=== PATIENT | male | born 1935 | race Caucasian/White ===

== ENCOUNTER 2017-08-07 16:12 | Observation (INO) ==
[2017-08-07] MEDS ORDERED: Ipratropium/Albuterol Neb 3 ML IH ONE (16:24)
[2017-08-07] MEDS ORDERED: methylPREDNISolone 125 MG/2 ML VIAL IVP ONE (16:24)
--- NOTE | 2017-08-07 16:33 | Emergency Department Note ---
Disposition Clinical Impression: Acute exacerbation of chronic obstructive airways disease Pneumonia Qualifiers: Pneumonia type: due to unspecified organism Laterality: unspecified laterality Lung location: unspecified part of lung Qualified Code(s): J18.9 - Pneumonia, unspecified organism Disposition: Admitted As Inpatient Condition: Fair Referrals: Nikunj Singleton MD [Primary Care Provider] - Forms: ED Satisfaction Letter Time of Disposition: 17:42 SOB HPI - General Chief Complaint: ED Shortness of Breath/Dyspnea Stated Complaint: COPD Time Seen by Provider: 08/07/17 16:24 Source: patient Mode of arrival: wheelchair Limitations: no limitations Nursing Notes Reviewed: Yes Vital Signs Reviewed: Yes - History of Present Illness ED-year-old with history of end-stage COPD who was at pulmonology and sent here for further evaluation with increasing shortness of breath. Their recommendation was admission for maximization of medical treatment. Pt Subjective Complaint: shortness of breath Onset (ago): month(s) Context: other (Recently worsening.) Severity: severe Consistency/Duration: constant Improves with: oxygen Worsens with: exertion Known history of: COPD Associated symptoms: Reports: wheezing. Denies: fever, cough Treatment prior to arrival: bronchodilator Cough present: Yes Cough Description: Involuntary Cough Frequency: Intermittent - Related Data Home Medications Medication Instructions Recorded Confirmed Albuterol Sulfate [Ventolin Hfa] 2 puff IH Q4HR PRN 12/21/15 08/07/17 Ipratropium/Albuterol Neb [Duoneb] 3 ml IH Q6HR 12/21/15 08/07/17 Polyethylene Glycol 3350 [MiraLAX] 17 gm PO DAILY 12/21/15 08/07/17 Budesonide/Formoterol 160/4.5 2 puff IH BIDR 08/07/17 08/07/17 [Symbicort 160/4.5] HYDROcodone/Acet 5/325 mg [[place] 1 tab PO Q4H PRN 08/07/17 08/07/17 5-325 mg] Roflumilast [Daliresp] 500 mcg PO DAILY 08/07/17 08/07/17 Umeclidinium [place] [Incruse 62.5 mcg IH DAILY 08/07/17 08/07/17 Ellipta] Allergies Allergy/AdvReac Type Severity Reaction Status Date / Time No Known Allergies Allergy Unverified 08/07/17 16:16 All systems ED: reviewed and negative except as stated. Constitutional: Denies: fever, chills, weakness, weight change Eyes: Denies: eye pain, eye discharge, vision change ENT ED: Denies: ear pain, throat pain, dental pain, hearing loss, epistaxis, congestion, dysphagia Cardiovascular: Denies: chest pain, palpitations, dyspnea on exertion, edema, syncope Respiratory: Reports: dyspnea, wheezes. Denies: cough, hemoptysis, stridor Gastrointestinal: Denies: abdominal pain, nausea, vomiting, diarrhea, constipation, hematemesis, melena, hematochezia Genitourinary: Denies: urgency, dysuria, frequency, hematuria Musculoskeletal: Denies: back pain, neck pain, arthralgia, myalgia Integumentary: Denies: rash, abrasion, lesions Neurological: Denies: headache, weakness, numbness, paresthesias, confusion, abnormal gait, vertigo Psychiatric: Denies: anxiety, depression, suicidal thoughts, homicidal thoughts , auditory hallucinations, visual hallucinations Endocrine: Denies: fatigue Hematological/Lymphatic: Denies: easy bleeding, easy bruising Allergic/Immunologic: Denies: facial swelling, urticaria Past Medical History - Past Medical History Medical history: Reports: cancer, COPD, GI bleed, hepatitis, migraine, other Psychiatric history: Reports: no psych history - Social History Smoking Status: Former smoker Smokeless Tobacco Status: No Alcohol use: Reports: none Drug use: Reports: none Physical Exam - General Limitations: no limitations General appearance: alert - Head Head exam: atraumatic, normocephalic, normal inspection - Eye Eye exam: Present: normal appearance, PERRL, EOMI - ENT ENT exam: normal exam, normal oropharynx, mucous membranes moist - Neck Neck exam: Present: normal inspection, full ROM, trachea midline - Chest Chest inspection: Present: normal inspection, symmetric chest wall rise - Respiratory Respiratory exam: Present: wheezes, accessory muscle use, prolonged expiratory phase - Cardiovascular Cardiovascular exam: Present: regular rate, normal rhythm, normal heart sounds - Abdominal Exam Abdominal exam: Present: soft, Non-Tender. Absent: tenderness, distention, guarding, rebound, rigidity - Extremities Exam Extremities exam: Present: pedal edema - Expanded Lower Extremity Exam Neurovascular/Tendon exam: Absent: motor deficit, sensory deficit, tendon deficit Gait: not tested/not observed - Back Exam Back exam: Present: normal inspection, full ROM. Absent: tenderness - Neurological Exam Neurological exam: Present: alert, oriented X3 - Psychiatric Psychiatric exam: Present: normal affect, normal mood - Skin Skin exam: Present: warm, dry, intact, normal color Course - Reevaluation(s) Reevaluation #1: 82-year-old seen by pulmonary today sent here for admission. Patient does have evidence of pneumonia. Time: 19:24 - Consultations Consultation #1: Discussed with , admit. Time: 19:24 Vital Signs Temperature 98.2 F 08/07/17 16:16 Pulse Rate 102 08/07/17 16:16 Respiratory Rate 26 08/07/17 16:16 Blood Pressure 110/64 08/07/17 16:16 O2 Sat by Pulse Oximetry 94 08/07/17 16:16 Temperature 98.2 F 08/07/17 16:16 Pulse Rate 90 08/07/17 16:41 Respiratory Rate 18 08/07/17 16:41 Blood Pressure 124/62 08/07/17 16:41 O2 Sat by Pulse Oximetry 98 08/07/17 16:41 Oxygen Delivery Oxygen Delivery Nasal Cannula Shortness of Breath/Dyspnea - Lab Data Lab results reviewed: Yes I reviewed the patient's lab results. Result diagrams: 08/07/17 16:40 08/07/17 16:40 Lab Results 08/07/17 08/07/17 08/07/17 Range/Units 16:40 16:40 16:40 WBC 10.1 (4.3-11.1) K/mcL RBC 4.31 (4.19-5.50) M/mcL Hgb 14.4 (12.9-16.9) g/dL Hct 43.8 (37.5-50.1) % MCV 101.6 H (83.0-100.0) fL MCH 33.4 H (28.0-33.3) pg MCHC 32.9 (31.6-35.5) g/dL RDW 12.4 (11.5-14.5) % Plt Count 523 H (140-400) K/mcL MPV 9.2 L (9.4-12.4) fL Immature Gran % 0.9 (0-4) % Seg Neutrophils % 82.7 % Lymphocytes % 8.1 % Monocytes % 7.1 % Eosinophils % 0.8 % Basophils % 0.4 % Neutrophils # 8.3 (1.6-8.9) K/mcL Lymphocytes # 0.8 (0.6-4.6) K/mcL Monocytes # 0.7 (0.0-1.3) K/mcL Eosinophils # 0.1 (0.0-0.6) K/mcL Basophils # 0.0 (0.0-0.2) K/mcL Sample Site ABG pH (7.32-7.45) pH Units ABG pCO2 (35-45) mmHg ABG pO2 (85-104) mmHg ABG HCO3 (21-27) mEq/L ABG Total CO2 (20-26) mEq/L ABG O2 Saturation (95-98) % ABG Base Excess (-2 to 3) mEq/L Pete Test O2 Delivery Device Inspired O2 (1-15=lpm [id number]=%) Sodium 143 (136-145) mEq/L Potassium 3.8 (3.5-5.1) mEq/L Chloride 104 (98-107) mEq/L Carbon Dioxide 29 (23-29) mEq/L BUN 9 (8-23) mg/dL Creatinine 0.88 (0.70-1.30) mg/dL Est GFR ( Amer) > 60 (> 60) Est GFR (Non-Af Amer) > 60 (> 60) BUN/Creatinine Ratio 10 (6-26) Glucose 113 H (70-105) mg/dL Calculated Osmolality 295 (280-300) Lactic Acid (0.5-2.2) mmol/L Calcium 10.2 (8.6-10.3) mg/dL Troponin I < 0.03 (< 0.04) ng/mL B-Natriuretic Peptide 11 (Less than 100) pg/mL 08/07/17 08/07/17 Range/Units 17:07 17:37 WBC (4.3-11.1) K/mcL RBC (4.19-5.50) M/mcL Hgb (12.9-16.9) g/dL Hct (37.5-50.1) % MCV (83.0-100.0) fL MCH (28.0-33.3) pg MCHC (31.6-35.5) g/dL RDW (11.5-14.5) % Plt Count (140-400) K/mcL MPV (9.4-12.4) fL Immature Gran % (0-4) % Seg Neutrophils % % Lymphocytes % % Monocytes % % Eosinophils % % Basophils % % Neutrophils # (1.6-8.9) K/mcL Lymphocytes # (0.6-4.6) K/mcL Monocytes # (0.0-1.3) K/mcL Eosinophils # (0.0-0.6) K/mcL Basophils # (0.0-0.2) K/mcL Sample Site R Radial ABG pH 7.37 (7.32-7.45) pH Units ABG pCO2 54 H (35-45) mmHg ABG pO2 57 L (85-104) mmHg ABG HCO3 31 H (21-27) mEq/L ABG Total CO2 33 H (20-26) mEq/L ABG O2 Saturation 88 L (95-98) % ABG Base Excess 4 H (-2 to 3) mEq/L Pete Test N/A O2 Delivery Device Cannula Inspired O2 2.0 (1-15=lpm pt70-075=%) Sodium (136-145) mEq/L Potassium (3.5-5.1) mEq/L Chloride (98-107) mEq/L Carbon Dioxide (23-29) mEq/L BUN (8-23) mg/dL Creatinine (0.70-1.30) mg/dL Est GFR ( Amer) (> 60) Est GFR (Non-Af Amer) (> 60) BUN/Creatinine Ratio (6-26) Glucose (70-105) mg/dL Calculated Osmolality (280-300) Lactic Acid 1.3 (0.5-2.2) mmol/L Calcium (8.6-10.3) mg/dL Troponin I (< 0.04) ng/mL B-Natriuretic Peptide (Less than 100) pg/mL - Radiology Data Radiology results reviewed: Yes I reviewed the patient's radiology results. Chest X-Ray 08/07/17 16:24 IMPRESSION: Left upper lobe pneumonia with underlying findings of apical predominant emphysema. Developing mass cannot be entirely excluded. Follow-up to complete clearing is recommended. D/ / Timmy Velasquez MD / Timmy Velasquez MD Interpreting Provider: Timmy Velasquez MD - EKG Data EKG attestation: Yes I reviewed and interpreted this EKG. EKG shows normal: Reports: sinus rhythm Rate: Reports: tachycardia Rhythm: Reports: NSR [place]/QRS: Reports: RBBB T wave inversions noted in: Reports: v1, v2, v3, v4 When compared to previous EKG there are: changes noted (New T-wave inversion in leads V1 and V2 V3 and V4) Interpretation: Reports: other (T-wave inversion and anterior septal leads)
[2017-08-07 17:13] LABS: ABG Base Excess 4 mEq/L (-2 to 3); ABG HCO3 31 mEq/L (21-27); ABG Oxygen Saturation 88 % (95-98); ABG PCO2 54 mmHg (35-45); ABG PH 7.37 pH Units (7.32-7.45); ABG PO2 57 mmHg (85-104); ABG TCO2 33 mEq/L (20-26)
[2017-08-07 17:14] LABS: Basophils % 0.4 %; Eosinophils # 0.1 K/mcL (0.0-0.6); Eosinophils % 0.8 %; Hematocrit 43.8 % (37.5-50.1); Hemoglobin 14.4 g/dL (12.9-16.9); Immature Granulocytes % 0.9 % (0-4); Lymphocytes # 0.8 K/mcL (0.6-4.6); Lymphocytes % 8.1 %; Mean Corpuscular HGB Conc 32.9 g/dL (31.6-35.5); Mean Corpuscular Hemoglobin 33.4 pg (28.0-33.3); Mean Corpuscular Volume 101.6 fL (83.0-100.0); Mean Platelet Volume 9.2 fL (9.4-12.4); Monocytes # 0.7 K/mcL (0.0-1.3); Monocytes % 7.1 %; Neutrophils # 8.3 K/mcL (1.6-8.9); Platelet Count 523 K/mcL (140-400); Red Blood Count 4.31 M/mcL (4.19-5.50); Red Cell Distribution Width 12.4 % (11.5-14.5); Segmented Neutrophils % 82.7 %
[2017-08-07 17:33] LABS: BUN/Creatinine Ratio 10 (6-26); Blood Urea Nitrogen 9 mg/dL (8-23); Calcium 10.2 mg/dL (8.6-10.3); Carbon Dioxide 29 mEq/L (23-29); Chloride 104 mEq/L (98-107); Glucose 113 mg/dL (70-105); Osmolality,Calculated 295 (280-300); Potassium 3.8 mEq/L (3.5-5.1); Sodium 143 mEq/L (136-145); Troponin I < 0.03 ng/mL (< 0.04); eGFR For African Americans > 60 (> 60); eGFR For Non-African Americans > 60 (> 60)
[2017-08-07] MEDS ORDERED: Piperacillin/Tazobactam 3.375 GM in 0.9 % Sodium Chloride Mini Bag 100 ML IVPB ONE (17:55)
[2017-08-07] MEDS ORDERED: Ipratropium/Albuterol Neb 3 ML IH PRN (19:23)
[2017-08-07] MEDS ORDERED: Naloxone 0.4 MG/ML INJ IVP PRN (19:25)
--- NOTE | 2017-08-07 19:30 | Internal Med History&Physical ---
Date of Encounter: 08/07/17 Time of Encounter: 19:27 Internal Medicine - H&P: HPI Chief complaint: SOB History of present illness: Mr. Robins is a 82 year old male with a long history COPD 2/2 smoking, quit in 2012 who presents with acute on subacute worsening of breath or symptoms. Found to be in COPD exacerbation along with left upper lobe pneumonia. He had visited pulmonology office in the clinic and was seen by Dr. Marie today where he complained of steady worsening of shortness of breath in the last 2 months. In the last few days symptoms has progressed to the extent that he was unable to ambulate around his house without feeling dyspneic. At baseline he uses nocturnal oxygen and when necessary daytime oxygen 2-3 L. However in the past week at least he had needed 2 to 3 L oxygen all day. He denies any chest pain. He is however productive of green sputum associated with cough. EKG personally reviewed with rate 102, sinus tachycardia, right bundle branch block that appear new compared to 2013. He however denies chest pain. Troponin was unremarkable in the setting of protracted symptoms measured in days and weeks XR/XR chest 1V portable IMPRESSION: Left upper lobe pneumonia with underlying findings of apical predominant emphysema. Developing mass cannot be entirely excluded. Follow-up to complete clearing is recommended. Past Med Surg Social Fam HX - Past Medical History Medical history: cancer, COPD, GI bleed, hepatitis, migraine, other Psychiatric history: no psych history - Social History Smoking Status: Former smoker Smokeless Tobacco Status: No Alcohol use: none Drug use: none - Family History Father Adopted: No Family Member Ethnicity: Non- Living Status: Internal Medicine - H&P: Meds Albuterol Sulfate [Ventolin Hfa] 2 puff IH Q4HR PRN 12/21/15 [History] Ipratropium/Albuterol Neb [Duoneb] 3 ml IH Q6HR 12/21/15 [History] Polyethylene Glycol 3350 [MiraLAX] 17 gm PO DAILY 12/21/15 [History] Budesonide/Formoterol 160/4.5 [Symbicort 160/4.5] 2 puff IH BIDR 08/07/17 [ History] HYDROcodone/Acet 5/325 mg [[place] 5-325 mg] 1 tab PO Q4H PRN 08/07/17 [History] Roflumilast [Daliresp] 500 mcg PO DAILY 08/07/17 [History] Umeclidinium [place] [Incruse Ellipta] 62.5 mcg IH DAILY 08/07/17 [History] 3 Allergy/AdvReac Type Severity Reaction Status Date / Time No Known Allergies Allergy Unverified 08/07/17 16:16 All Systems PM: A 10-system review of systems was performed and is negative for pertinent findings except as documented above in the HPI. Review of systems: ROS 14 point review of systems reviewed as best as possible given presentation. Pertinent positive or negative as per HPI or otherwise reviewed as negative - Constitutional Vitals: Temp Pulse Resp BP Pulse Ox 98.2 F 90 18 124/62 98 08/07/17 16:16 08/07/17 16:41 08/07/17 16:41 08/07/17 16:41 08/07/17 16:41 Exam: General - AAO x 3 Psych - Appropriate affect/speech. No agitation Eyes - [place]. Eye lids intact. No scleral icterus Neuro - No gross peripheral or central neuro deficits on inspection Heart - Sinus tachycardia. RRR. S1 and S2 present. No added HS/murmurs appreciated. No elevated JVD appreciated. Lung - decreased air entry b/l, scant left upper lobe crackles, scant wheezes appreciated GI - Soft, non-tender. No hepatosplenomegaly/ascites. BS+ - No CVA/suprapubic tenderness or palpable bladder distension Skin - Intact. No rash/petechiae/ecchymosis. Warm extremities Internal Med - H&P Results - Labs CBC & Chem 7: 08/07/17 16:40 08/07/17 16:40 Labs: Short CBC 08/07/17 Range/Units 16:40 WBC 10.1 (4.3-11.1) K/mcL Hgb 14.4 (12.9-16.9) g/dL Hct 43.8 (37.5-50.1) % Plt Count 523 H (140-400) K/mcL Neutrophils # 8.3 (1.6-8.9) K/mcL BMP 08/07/17 16:40 Sodium 143 Potassium 3.8 Chloride 104 Carbon Dioxide 29 BUN 9 Creatinine 0.88 Glucose 113 H Calcium 10.2 Cardiac Enzymes 08/07/17 Range/Units 16:40 Troponin I < 0.03 (< 0.04) ng/mL - ABG Interpretation ABG results: 08/07/17 17:07 ABG pH 7.37 ABG pCO2 54 H ABG pO2 57 L ABG HCO3 31 H ABG Total CO2 33 H ABG O2 Saturation 88 L ABG Base Excess 4 H - Impressions ITS Impressions Chest X-Ray 08/07/17 16:24 IMPRESSION: Left upper lobe pneumonia with underlying findings of apical predominant emphysema. Developing mass cannot be entirely excluded. Follow-up to complete clearing is recommended. D/ / Timmy Velasquez MD / Timmy Velasquez MD Interpreting Provider: Timmy Velasquez MD - Assessment and plan (1) Acute exacerbation of chronic obstructive airways disease Current Visit: Yes Status: Acute Assessment and plan: IV steroids, DuoNeb, antibiotics to treat pneumonia (2) Pneumonia Current Visit: Yes Status: Acute Assessment and plan: Empiric community acquired pneumonia coverage with Rocephin, azithromycin IV Serologies, RVP pulse oximetry Check CT chest without contrast to rule out postobstructive pneumonia Review last CT in 2014 Qualifiers: Pneumonia type: due to unspecified organism Laterality: unspecified laterality Lung location: unspecified part of lung Qualified Code(s): J18.9 - Pneumonia, unspecified organism (3) Acute and chronic respiratory failure ([id number]) Current Visit: Yes Status: Acute Assessment and plan: treat above Qualifiers: Respiratory failure complication: hypoxia Qualified Code(s): J96.21 - Acute and chronic respiratory failure with hypoxia - Time Spent With Patient Total time spent is greater than 50% in coordination of care (as documented) at patient's floor/unit and/or counseling patient:
[2017-08-07] MEDS: *HR* HYDROcodone/Acet 5/325 mg TABLET PO PRN (22:09)
[2017-08-07] MEDS: Azithromycin 500 MG in D5% in Water 250 ML IVPB SCH (22:15)
[2017-08-07] MEDS: Budesonide/Formoterol 160/4.5 MDI IH SCH (22:57)
[2017-08-07] MEDS: Ipratropium/Albuterol Neb 3 ML IH SCH (22:58)
[2017-08-07] MEDS: MethylPREDNISolone 40 MG/ML VIAL IVP SCH (23:24)
[2017-08-08] MEDS: Ipratropium/Albuterol Neb 3 ML IH SCH ×4 (04:03→23:35)
[2017-08-08] MEDS: MethylPREDNISolone 40 MG/ML VIAL IVP SCH ×3 (05:13→20:50)
[2017-08-08] MEDS: *HR* Enoxaparin 30 MG/0.3 ML SYRINGE SQ SCH (05:14)
[2017-08-08 05:39] LABS: Basophils % 0.1 %; Hematocrit 38.2 % (37.5-50.1); Immature Granulocytes % 0.9 % (0-4); Lymphocytes # 0.3 K/mcL (0.6-4.6); Lymphocytes % 4.2 %; Mean Corpuscular Hemoglobin 32.6 pg (28.0-33.3); Mean Platelet Volume 9.2 fL (9.4-12.4); Monocytes % 0.4 %; Neutrophils # 7.3 K/mcL (1.6-8.9); Platelet Count 488 K/mcL (140-400); Red Blood Count 3.86 M/mcL (4.19-5.50); Red Cell Distribution Width 12.6 % (11.5-14.5); Segmented Neutrophils % 94.4 %
[2017-08-08 05:41] LABS: Hemoglobin 12.6 g/dL (12.9-16.9)
[2017-08-08 05:58] LABS: BUN/Creatinine Ratio 15 (6-26); Blood Urea Nitrogen 13 mg/dL (8-23); Calcium 9.9 mg/dL (8.6-10.3); Carbon Dioxide 25 mEq/L (23-29); Chloride 104 mEq/L (98-107); Glucose 171 mg/dL (70-105); Osmolality,Calculated 294 (280-300); Potassium 4.3 mEq/L (3.5-5.1); Sodium 140 mEq/L (136-145); eGFR For African Americans > 60 (> 60); eGFR For Non-African Americans > 60 (> 60)
[2017-08-08] MEDS: *HR* HYDROcodone/Acet 5/325 mg TABLET PO PRN ×3 (08:11→21:45)
[2017-08-08] MEDS: (Roflumilast [Daliresp] 500 MCG) PO SCH (08:41)
[2017-08-08] MEDS: cefTRIAXone 2,000 MG in Water for inj. (sterile) 20 ML 20 ML IVPB SCH (08:41)
[2017-08-08] MEDS: (Umeclidinium Bromide [Incruse Ellipta] 62.5 MCG) IH SCH (08:41)
[2017-08-08] MEDS: Budesonide/Formoterol 160/4.5 MDI IH SCH ×2 (10:50→23:35)
[2017-08-08 12:23] LABS: Adenovirus Not Detected (Not Detect); Bordetella Pertussis Not Detected (Not Detect); Chlamydophila pneumoniae Not Detected (Not Detect); Coronavirus 229E Not Detected (Not Detect); Coronavirus HKU1 Not Detected (Not Detect); Coronavirus NL63 Not Detected (Not Detect); Coronavirus OC43 Not Detected (Not Detect); Human Metapneumovirus Not Detected (Not Detect); Human Rhinovirus/Enterovirus Not Detected (Not Detect); Influenza A Subtype 2009 H1 Not Detected (Not Detect); Influenza A Untypeable Not Detected (Not Detect); Influenza B Not Detected (Not Detect); Mycoplasma pneumoniae Not Detected (Not Detect); Parainfluenza Virus 1 Not Detected (Not Detect); Parainfluenza Virus 2 Not Detected (Not Detect); Parainfluenza Virus 3 Not Detected (Not Detect); Parainfluenza Virus 4 Not Detected (Not Detect); Respiratory Syncytial Virus Not Detected (Not Detect)
--- NOTE | 2017-08-08 12:27 | Electrocardiograph Report ---
[place] [id number] Test Date: 2017-08-07 Pat Name: Khang Robins Department: 104 Room: 3A47 Gender: M Government Clerk: LUPILLO : 1935 Requested By: Benedict Malin Order Number: [id number] Reading MD: Jagjit Mora Measurements Intervals [place] Rate: 102 P: 79 [place]: 148 QRS: 57 QRSD: 135 T: 42 QT: 356 QTc: 415 Interpretive Statements SINUS TACHYCARDIA RIGHT BUNDLE BRANCH BLOCK Electronically Signed On 08-08-2017 12:25:33 EDT by Jagjit Mora
--- NOTE | 2017-08-08 15:39 | Internal Med Progress Note ---
Date of Encounter: 08/08/17 Time of Encounter: 15:36 - Assessment and plan (1) Acute exacerbation of chronic obstructive airways disease Current Visit: Yes Status: Acute Assessment and plan: Acute on chronic hypoxic hypercapnic respiratory failure secondary to acute COPD exacerbation due to community-acquired pneumonia, unknown agent Rocephin started, azithromycin day #2 Received 1 dose of Zosyn at the ER on 08/07/2017 Continue Solu-Medrol, DuoNeb CT scan of the chest showed a left upper lobe opacity possible infection, needs follow-up as an outpatient with a CT in 6 weeks as neoplasm remains a possibility. (2) Pneumonia Current Visit: Yes Status: Acute Assessment and plan: Rocephin, azithromycin IV Qualifiers: Pneumonia type: due to unspecified organism Laterality: unspecified laterality Lung location: unspecified part of lung Qualified Code(s): J18.9 - Pneumonia, unspecified organism (3) Acute and chronic respiratory failure ([id number]) Current Visit: Yes Status: Acute Assessment and plan: treat above Qualifiers: Respiratory failure complication: hypoxia Qualified Code(s): J96.21 - Acute and chronic respiratory failure with hypoxia (4) History of GI bleed Current Visit: Yes Status: Acute Assessment and plan: Omeprazole (5) Thrombocytosis Current Visit: Yes Status: Acute Assessment and plan: Possibly related to infection - Time Spent With Patient Total time spent is greater than 50% in coordination of care (as documented) at patient's floor/unit and/or counseling patient: - Subjective Interval history: Feeling less short of breath, denies any chest pain, no abdominal pain or dysuria. No fevers. Bringing up grayish phlegm at times - Constitutional Vitals: Temp Pulse Resp BP Pulse Ox 98.0 F 103 17 107/61 96 08/08/17 15:00 08/08/17 15:00 08/08/17 15:00 08/08/17 15:00 08/08/17 15:00 General appearance: Present: A&O X 3 - Head Head exam: Present: atraumatic, normocephalic - Eye Eye exam: Present: PERRL, conjuntiva pink, sclera anicteric Pupils: Present: PERRL - Neck Neck exam general surgery: Present: supple, trachea midline. Absent: lymphadenopathy - Respiratory Respiratory exam: Present: decreased breath sounds (Very diminished breath sounds, minimal wheezing), CTAB. Absent: accessory muscle use, rales, rhonchi, wheezes - Cardiovascular Cardiovascular exam: Present: RRR, +S1, +S2. Absent: diastolic murmur, gallop, rubs, systolic murmur - GI/Abdominal GI/Abdominal exam: Present: normal bowel sounds, soft, no peritoneal signs. Absent: distended, tenderness - Extremities Exam Extremities exam: Present: warm, radial pulses palpable and symmetrical. Absent : calf tenderness, cyanotic, pedal edema - Neurological Exam Neurological exam: Present: CN II-XII intact, oriented X3, no focal deficits. Absent: pronater drift, facial droop, speech deficit - Skin Skin exam: Present: dry, intact Internal Medicine: Result - Labs CBC & Chem 7: 08/08/17 05:22 08/08/17 05:22 Labs: Short CBC 08/08/17 Range/Units 05:22 WBC 7.7 (4.3-11.1) K/mcL Hgb 12.6 L D (12.9-16.9) g/dL Hct 38.2 (37.5-50.1) % Plt Count 488 H (140-400) K/mcL Neutrophils # 7.3 (1.6-8.9) K/mcL BMP 08/08/17 05:22 Sodium 140 Potassium 4.3 Chloride 104 Carbon Dioxide 25 BUN 13 Creatinine 0.89 Glucose 171 H Calcium 9.9 - ABG Interpretation ABG results: ABG ABG pH 7.37 pH Units (7.32-7.45) 08/07/17 17:07 ABG pCO2 54 mmHg (35-45) H 08/07/17 17:07 ABG pO2 57 mmHg (85-104) L 08/07/17 17:07 ABG O2 Saturation 88 % (95-98) L 08/07/17 17:07 - Impressions Impressions Chest CT 08/08/17 08:00 IMPRESSION: Solid opacity in the left upper lobe has features more typical for infection or pulmonary infarction. However, given the extensive emphysema, neoplasm remains a possibility. RECOMMENDATIONS: Short-term (approximately 6 weeks) follow-up chest CT with contrast. D/ / 08/08/2017 09:35:47 Thaddeus Alarcon MD / bess Interpreting Provider: Thaddeus Alarcon MD Consult Discharge Plan - Plan Referrals: Nikunj Singleton MD [Primary Care Provider] - 08/15/17 2:30 pm
[2017-08-08] MEDS: Azithromycin 500 MG in D5% in Water 250 ML IVPB SCH (20:51)
[2017-08-09] MEDS: *HR* HYDROcodone/Acet 5/325 mg TABLET PO PRN (02:08)
[2017-08-09] MEDS: Ipratropium/Albuterol Neb 3 ML IH SCH ×2 (04:19→11:18)
[2017-08-09] MEDS: *HR* Enoxaparin 30 MG/0.3 ML SYRINGE SQ SCH (05:31)
[2017-08-09 05:42] LABS: Basophils % 0.1 %; Hematocrit 36.9 % (37.5-50.1); Immature Granulocytes % 0.6 % (0-4); Lymphocytes # 0.5 K/mcL (0.6-4.6); Lymphocytes % 3.2 %; Mean Corpuscular HGB Conc 32.5 g/dL (31.6-35.5); Mean Corpuscular Volume 98.4 fL (83.0-100.0); Mean Platelet Volume 9.2 fL (9.4-12.4); Monocytes # 0.4 K/mcL (0.0-1.3); Monocytes % 2.5 %; Neutrophils # 13.2 K/mcL (1.6-8.9); Platelet Count 496 K/mcL (140-400); Red Blood Count 3.75 M/mcL (4.19-5.50); Red Cell Distribution Width 12.6 % (11.5-14.5); Segmented Neutrophils % 93.6 %
[2017-08-09] MEDS ORDERED: Ibuprofen 400 MG TABLET PO ONE (05:53)
[2017-08-09 06:07] LABS: BUN/Creatinine Ratio 23 (6-26); Blood Urea Nitrogen 18 mg/dL (8-23); Calcium 9.7 mg/dL (8.6-10.3); Carbon Dioxide 27 mEq/L (23-29); Chloride 104 mEq/L (98-107); Glucose 160 mg/dL (70-105); Osmolality,Calculated 291 (280-300); Potassium 4.3 mEq/L (3.5-5.1); Sodium 138 mEq/L (136-145); eGFR For African Americans > 60 (> 60); eGFR For Non-African Americans > 60 (> 60)
[2017-08-09] MEDS ORDERED: Azithromycin 250 MG TABLET PO ONE (08:45)
--- NOTE | 2017-08-09 08:46 | Discharge Summary ---
- NOTES TO OUTPATIENT PROVIDER Notes to Outpatient Provider: Follow-up with primary care physician within the next 7 days. Follow-up with pulmonary within the next 2 weeks. Complete 6 more days of cefdinir. Taper prednisone as follows 60 mg daily for 3 days, 15 g for 3 days, 40 mg for 3 days, 30 mg for 3 days, 20 mg for 3 days, 10 minutes for 3 days. Continue oxygen therapy and nebulizers. Needs a CT scan of the chest within the next 6 weeks Date of Encounter: 08/09/17 Time of Encounter: 08:44 - Discharge Diagnosis (1) Acute exacerbation of chronic obstructive airways disease Priority: Primary Status: Acute Assessment and Plan: Acute on chronic hypoxic hypercapnic respiratory failure secondary to acute COPD exacerbation due to community-acquired pneumonia, unknown agent (2) Pneumonia Priority: Primary Status: Acute Qualifiers: Pneumonia type: due to unspecified organism Laterality: unspecified laterality Lung location: unspecified part of lung Qualified Code(s): J18.9 - Pneumonia, unspecified organism (3) Acute and chronic respiratory failure ([id number]) Priority: Primary Status: Acute Qualifiers: Respiratory failure complication: hypoxia Qualified Code(s): J96.21 - Acute and chronic respiratory failure with hypoxia (4) History of GI bleed Priority: Secondary Status: Acute (5) Thrombocytosis Priority: Secondary Status: Acute Hospital course: Mr. Robins is a 82 year old male with a long history COPD 2/2 smoking, quit in 2012, GI bleed, hepatitis A, migraines, cancer who presented with acute worsening shortness of breath. Found to be in COPD exacerbation along with left upper lobe pneumonia. He had visited pulmonology office in the clinic and was seen by Dr. Marie where he complained of steady worsening of shortness of breath in the last 2 months. In the last few days symptoms progressed to the extent that he was unable to ambulate around his house without feeling dyspneic. At baseline he uses nocturnal oxygen and when necessary daytime oxygen 2-3 L. However in the past week at least he had needed 2 to 3 L oxygen all day. Complained of productive green sputum associated with cough. EKG personally reviewed with rate 102, sinus tachycardia, right bundle branch block that appear new compared to 2013. He however denies chest pain. Troponin was unremarkable in the setting of protracted symptoms measured in days and weeks CXR showed: Left upper lobe pneumonia with underlying findings of apical predominant emphysema. Developing mass cannot be entirely excluded. Follow-up to complete clearing is recommended. Received 1 dose of Zosyn at the ER on 08/07/2017. Rocephin and azithromycin were started on the floor Completed 3 doses of 500 mg of azithromycin. Was started on Solu-Medrol and DuoNeb's He symptoms improved, he was offered the option to stay in another day but prefers to go home at the moment as he is breathing better. CT scan of the chest showed a left upper lobe opacity possible infection, needs follow-up as an outpatient with a CT in 6 weeks as neoplasm remains a possibility. - Time Spent with Patient Total time spent providing and/or coordinating discharge services: Greater than 30 minutes (40 minutes) - Discharge Medications Prescriptions: Cefdinir [Omnicef] 300 mg PO BID #12 capsule predniSONE [PredniSONE] 10 mg PO DAILY 24 Days tablet Home Medications: Albuterol Sulfate [Ventolin Hfa] 2 puff IH Q4HR PRN 12/21/15 [History] Ipratropium/Albuterol Neb [Duoneb] 3 ml IH Q6HR 12/21/15 [History] Polyethylene Glycol 3350 [MiraLAX] 17 gm PO DAILY 12/21/15 [History] Budesonide/Formoterol 160/4.5 [Symbicort 160/4.5] 2 puff IH BIDR 08/07/17 [ History] HYDROcodone/Acet 5/325 mg [[place] 5-325 mg] 1 tab PO Q4H PRN 08/07/17 [History] Roflumilast [Daliresp] 500 mcg PO DAILY 08/07/17 [History] Umeclidinium [place] [Incruse Ellipta] 62.5 mcg IH DAILY 08/07/17 [History] Cefdinir [Omnicef] 300 mg PO BID #12 capsule 08/09/17 [Rx] predniSONE [PredniSONE] 10 mg PO DAILY 24 Days tablet 08/09/17 [Rx] Allergies/Adverse Reactions: 3 Allergy/AdvReac Type Severity Reaction Status Date / Time No Known Allergies Allergy Unverified 08/07/17 16:16 Date of admission: 08/07/17 19:53 Primary care physician: Nikunj Singleton MD Consults: 08/09/17 07:19 Consult to Palliative Care [CONS] Routine Comment: Consulting Provider: Palliative Care Nisha Reason for Consult: Terminal COPD Call Completed: Yes - Constitutional Vitals: Temp Pulse Resp BP Pulse Ox 97.8 F 98 17 110/60 95 08/09/17 07:02 08/09/17 07:02 08/09/17 07:02 08/09/17 07:02 08/09/17 07:02 General appearance: Present: A&O X 3 - Head Head exam: Present: atraumatic, normocephalic - Eye Eye exam: Present: PERRL, conjuntiva pink, sclera anicteric Pupils: Present: PERRL - Neck Neck exam general surgery: Present: supple, trachea midline. Absent: lymphadenopathy - Respiratory Respiratory exam: Present: decreased breath sounds (Very diminished breath sounds bilaterally), CTAB. Absent: accessory muscle use, rales, rhonchi, wheezes - Cardiovascular Cardiovascular exam: Present: RRR, +S1, +S2. Absent: diastolic murmur, gallop, rubs, systolic murmur - GI/Abdominal GI/Abdominal exam: Present: normal bowel sounds, soft, no peritoneal signs. Absent: distended, tenderness - Extremities Exam Extremities exam: Present: warm, radial pulses palpable and symmetrical. Absent : calf tenderness, cyanotic, pedal edema - Neurological Exam Neurological exam: Present: CN II-XII intact, oriented X3, no focal deficits. Absent: pronater drift, facial droop, speech deficit - Skin Skin exam: Present: dry, intact - Patient Status Disposition: Home Health Service Condition: Fair Overall status at discharge: patient is progressing back to baseline - Discharge Instructions Follow Up With: Nikunj Singleton MD [Primary Care Provider] - 08/15/17 2:30 pm - Diet and Activity Activity: increase activity as tolerated, wear oxygen at night Diet: low fat, low cholesterol
--- NOTE | 2017-08-09 08:58 | Physician Discharge Referral ---
Home Health/Hosp Referral Info Transfer to: Home Health Provider in Charge Post Discharge: PCP - Diagnosis (1) Acute exacerbation of chronic obstructive airways disease Status: Acute (2) Pneumonia Status: Acute (3) Acute and chronic respiratory failure ([id number]) Status: Acute (4) History of GI bleed Status: Acute (5) Thrombocytosis Status: Acute - Respiratory Orders Oxygen / L per min (3 L) Smoking Cessation: Smoking cessation has been advised. For more information, call the [place] Tobacco Quit Line at 2-395-DHXM-NOW. - Diet/Nutrition Diet/Nutrition Orders: No Added Salt (CODY) - Services Needed Following services are medically necessary services: Home Health Aide, Physical Therapy, Occupational Therapy Home Care Orders: Follow-up with primary care physician within the next 7 days. Follow-up with pulmonary within the next 2 weeks. Complete 6 more days of cefdinir. Taper prednisone as follows 60 mg daily for 3 days, 15 g for 3 days, 40 mg for 3 days , 30 mg for 3 days, 20 mg for 3 days, 10 minutes for 3 days. Continue oxygen therapy and nebulizers. Needs a CT scan of the chest within the next 6 weeks - Transfer Medications Prescriptions: Cefdinir [Omnicef] 300 mg PO BID #12 capsule predniSONE [PredniSONE] 10 mg PO DAILY 24 Days tablet Home Medications: Albuterol Sulfate [Ventolin Hfa] 2 puff IH Q4HR PRN 12/21/15 [History] Ipratropium/Albuterol Neb [Duoneb] 3 ml IH Q6HR 12/21/15 [History] Polyethylene Glycol 3350 [MiraLAX] 17 gm PO DAILY 12/21/15 [History] Budesonide/Formoterol 160/4.5 [Symbicort 160/4.5] 2 puff IH BIDR 08/07/17 [ History] HYDROcodone/Acet 5/325 mg [[place] 5-325 mg] 1 tab PO Q4H PRN 08/07/17 [History] Roflumilast [Daliresp] 500 mcg PO DAILY 08/07/17 [History] Umeclidinium [place] [Incruse Ellipta] 62.5 mcg IH DAILY 08/07/17 [History] Cefdinir [Omnicef] 300 mg PO BID #12 capsule 08/09/17 [Rx] predniSONE [PredniSONE] 10 mg PO DAILY 24 Days tablet 08/09/17 [Rx] Allergies/Adverse Reactions: 3 Allergy/AdvReac Type Severity Reaction Status Date / Time No Known Allergies Allergy Unverified 08/07/17 16:16 Certification: Further, I certify that my clinical findings support that this patient is homebound (i.e. absences from home require considerable and taxing effort and are for medical reasons or rastafarian services or infrequently or short duration when for other reasons) because: Homebound Reason: Patient requires assistance of a person or device to safely leave home Attestation: My signature below is to certify that this patient is under my care and that I, or nurse practitioner, or a physician's administrative services assistant working with me, has a face-to -face encounter with this patient.
[2017-08-09] MEDS: cefTRIAXone 2,000 MG in Water for inj. (sterile) 20 ML 20 ML IVPB SCH (09:19)
[2017-08-09] MEDS: MethylPREDNISolone 40 MG/ML VIAL IVP SCH (09:19)
[2017-08-09] MEDS: (Umeclidinium Bromide [Incruse Ellipta] 62.5 MCG) IH SCH (09:20)
[2017-08-09] MEDS: (Roflumilast [Daliresp] 500 MCG) PO SCH (09:20)
[2017-08-09 10:38] VITALS: BP 124/73
--- NOTE | 2017-08-09 10:58 | Palliative - Consult Note ---
Date of Encounter: 08/09/17 Time of Encounter: 09:50 - Assessment and Plan (1) Dyspnea Current Visit: Yes Status: Acute Assessment and plan: Patient continues with antibiotics, steroids, bronchodilators. If he decides to enroll with hospice, will write for low dose opioids for dyspnea. Qualifiers: Dyspnea type: unspecified Qualified Code(s): R06.00 - Dyspnea, unspecified (2) Anxiety Current Visit: Yes Status: Acute Assessment and plan: If he decides to transition home with hospice care, will order prescription for Lorazepam oral concentrate. Awaiting family meeting with hospice nurse. (3) Counseling regarding advanced care planning and goals of care Current Visit: Yes Status: Acute Assessment and plan: Discussed patient's illness at length, including severity of his COPD. Discuss his goals and quality of life. Patient understands that his illness is end stage, and that there is not much that can be done further than the treatment he is already receiving. He does not want any life support, intubation, CPR or any other resuscitative measures if/when it comes to the end of his life. Code status transitioned to DNRCC and state form completed and signed by patient. Discussed that he would be candidate for hospice, and discussed details of program at length, including symptom management for his air hunger. Patient did express that he would be interested and wanted me to contact his daughter Candie Cardozo, who works for [employer]. I spoke with Candie, who also is in agreement to have hospice referral. We discussed that hospice nurse would come to hospital, and meet pt and his . Candie does plan on attending as well. D/W Dr. Bucio, discharging hospitalist, and updated on status. (4) Acute exacerbation of chronic obstructive airways disease Current Visit: Yes Status: Acute (5) Pneumonia Current Visit: Yes Status: Acute Qualifiers: Pneumonia type: due to unspecified organism Laterality: unspecified laterality Lung location: unspecified part of lung Qualified Code(s): J18.9 - Pneumonia, unspecified organism (6) Acute and chronic respiratory failure ([id number]) Current Visit: Yes Status: Acute Qualifiers: Respiratory failure complication: hypoxia Qualified Code(s): J96.21 - Acute and chronic respiratory failure with hypoxia Palliative-CN HPI - Data of Consult Consult date: 08/09/17 Requesting Physician: Hedy Novoa Primary Care Provider: Nikunj Singleton MD - Consult Narrative History of present illness: Mr. Robins is a 82 year old male with a history of end stage COPD, who was sent to the emergency department from the [facility] pulmonology office, where he was in respiratory distress. A discussion was held in the office that he either needed comfort care/hospice, or would need to go to the emergency room. He was admitted and treated for a pneumonia as well as COPD exacerbation. He has previous smoking history, but quit in 2012. Patient describes decline in his condition, with decreased endurance, and increasing dyspnea, even at rest, and gets in severe distress with any exertion. Has increasing lower extremity edema. He states he is improved slightly from admission, and states "there is not much else that can be done for my lungs". Other medical history includes: GI bleed, hepatitis, migraines. CT chest demonstrated severe emphysema as well as ARCHIE pneumonia. He was very hypoxic with PO2 57 on ABG, CO2 54. He already is on oxygen at home, and states he now wears this continuously. Upon my visit, he is up on side of bed. Dyspneic with conversation. Denies any pain. Does have some anxiety with his dyspnea. No family present. CC: Hedy Novoa Past Med Surg Social Fam HX - Past Medical History Medical history: cancer, COPD, GI bleed, hepatitis, migraine, other Psychiatric history: no psych history - Social History Smoking Status: Former smoker Smokeless Tobacco Status: No Alcohol use: none Drug use: none - Family History Father Adopted: No Family Member Ethnicity: Non- Living Status: Medications and Allergies Albuterol Sulfate [Ventolin Hfa] 2 puff IH Q4HR PRN 12/21/15 [History] Ipratropium/Albuterol Neb [Duoneb] 3 ml IH Q6HR 12/21/15 [History] Polyethylene Glycol 3350 [MiraLAX] 17 gm PO DAILY 12/21/15 [History] Budesonide/Formoterol 160/4.5 [Symbicort 160/4.5] 2 puff IH BIDR 08/07/17 [ History] HYDROcodone/Acet 5/325 mg [[place] 5-325 mg] 1 tab PO Q4H PRN 08/07/17 [History] Roflumilast [Daliresp] 500 mcg PO DAILY 08/07/17 [History] Umeclidinium [place] [Incruse Ellipta] 62.5 mcg IH DAILY 08/07/17 [History] Cefdinir [Omnicef] 300 mg PO BID #12 capsule 08/09/17 [Rx] predniSONE [PredniSONE] 10 mg PO DAILY 24 Days tablet 08/09/17 [Rx] 3 Allergy/AdvReac Type Severity Reaction Status Date / Time No Known Allergies Allergy Unverified 08/07/17 16:16 All systems: reviewed and no additional remarkable complaints except as stated ( severe shortness of breath with any exertion, lower extremity edema, anxiety) Palliative Care-Exam - Constitutional Vitals: Temp Pulse Resp BP Pulse Ox 97.7 F 94 18 124/73 98 08/09/17 10:35 08/09/17 10:35 08/09/17 10:35 08/09/17 10:35 08/09/17 10:35 General appearance: Present: no acute distress - Head Head Exam: Present: normal inspection, normocephalic - Eye Eye exam: Present: normal appearance, PERRL - Respiratory Respiratory exam: Present: decreased breath sounds Additional comments: Expiratory wheezed throughout all posterior lung dougherty. - Cardiovascular Cardiovascular exam: Present: +S1, +S2 - GI/Abdominal Exam GI/Abdominal exam: Present: normal bowel sounds, soft - Extremities Exam Additional comments: 2-3+ edema bilateral lower legs and feet - Neurological Exam Neurological exam: Present: alert, oriented X3, strengths equal and symetr throughout - Skin Skin exam: Present: dry, pallor, warm Internal Medicine - CN: Reslt - Labs CBC & Chem 7: 08/09/17 05:31 08/09/17 05:31 Labs: Short CBC 08/09/17 Range/Units 05:31 WBC 14.1 H D (4.3-11.1) K/mcL Hgb 12.0 L (12.9-16.9) g/dL Hct 36.9 L (37.5-50.1) % Plt Count 496 H (140-400) K/mcL Neutrophils # 13.2 H (1.6-8.9) K/mcL BMP 08/09/17 05:31 Sodium 138 Potassium 4.3 Chloride 104 Carbon Dioxide 27 BUN 18 Creatinine 0.80 Glucose 160 H Calcium 9.7 - ABG Interpretation ABG results: ABG ABG pH 7.37 pH Units (7.32-7.45) 08/07/17 17:07 ABG pCO2 54 mmHg (35-45) H 08/07/17 17:07 ABG pO2 57 mmHg (85-104) L 08/07/17 17:07 ABG O2 Saturation 88 % (95-98) L 08/07/17 17:07 Consult Discharge Plan - Plan Referrals: Nikunj Singleton MD [Primary Care Provider] - 08/15/17 2:30 pm Prescriptions: Cefdinir [Omnicef] 300 mg PO BID #12 capsule predniSONE [PredniSONE] 10 mg PO DAILY 24 Days tablet Palliative Quality Palliative Quality: Screen for Code Status: Yes, Screen for Goals of Care: Yes, Screen for Pain: Yes, If Pain Regimen Started, Initiate Bowel Regimen: NA, Screen for Nausea/Vomitting: Yes Code Status: 08/09/17 10:55 DNR [Resuscitation Status: Active] [RES] Routine Comment: Resuscitation Status: DNR-Comfort Care
[2017-08-09] MEDS: Budesonide/Formoterol 160/4.5 MDI IH SCH (11:18)
[2017-08-10 15:04] LABS: Mycoplasma pneumoniae IgG 0.15 U/L (<=0.09)
== END 2017-08-09 13:22 | disposition hospice, home (50) | DRG 193 ==
LOC: EMEROO 16:12 → 3ANU 16:12
PROVIDERS: ADMIT Internal Medicine Hematology & Oncology; ATTEND Internal Medicine